=== PATIENT | male | born 1990 | race Caucasian/White ===

== ENCOUNTER 2017-12-11 20:17 | Emergency (ER) | payer SELFPAY ==
[2017-12-11] MEDS: TETANUS/DIPHTHERIA TOXOID ADULT 0.5 ML VIAL IM (21:06)
[2017-12-11] MEDS: AMOXICILLIN/CLAVULANATE K 875 MG TAB PO (22:10)
== END 2017-12-11 22:15 | disposition home or self-care (01) ==
LOC: PHEFT 20:17
DX: S61.411A Laceration without foreign body of right hand, initial encounter (principal); F17.200 Nicotine dependence, unspecified, uncomplicated; F17.220 Nicotine dependence, chewing tobacco, uncomplicated; Y04.2XXA Assault by strike against or bumped into by another person, initial encounter; Y92.149 Unspecified place in prison as the place of occurrence of the external cause; Z23 Encounter for immunization
CPT/HCPCS: 73130; 90471; 90714; 99283-25